=== PATIENT | female | born 1980 | race American Indian/Alaskan Native ===

== ENCOUNTER 2019-04-16 20:53 | Emergency (ER) | payer SELFPAY ==
[2019-04-16 21:03] VITALS: BP 109/59
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
[2019-04-16] MEDS ORDERED: ACETAMINOPHEN 325 MG TAB ONE (21:17)
[2019-04-16] MEDS ORDERED: ACETAMINOPHEN 325 MG TAB PO ONE (21:23)
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
--- NOTE | 2019-04-16 22:31 | XRay Report ---
CLINICAL DATA: low back pain TECHNICAL DATA: AP and lateral views lumbar spine. FINDINGS: The bone mineralization is normal. Vertebral body heights are normal. Intervertebral disc spaces are well maintained. Pedicles and spinous processes are normal in alignment. SI joints and sacrum are nor mal. IMPRESSION: Normal examination lumbar spine. Signer Name: Rickie Byrd MD Signed: 04/16/2019 10:27 PM Workstation Name: [id number]
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
[2019-04-17] MEDS ORDERED: IBUPROFEN 800 MG TAB PO ONE (01:24)
== END 2019-04-17 02:25 | disposition home or self-care (01) ==
LOC: ED 20:53
DX: S16.1XXA Strain of muscle, fascia and tendon at neck level, initial encounter (principal); S39.012A Strain of muscle, fascia and tendon of lower back, initial encounter; F17.200 Nicotine dependence, unspecified, uncomplicated; W45.8XXA Other foreign body or object entering through skin, initial encounter; Y93.89 Activity, other specified; Y92.89 Other specified places as the place of occurrence of the external cause; Y99.8 Other external cause status
CPT/HCPCS: 72040; 72100